=== PATIENT | female | born 1960 | race Caucasian/White ===

== ENCOUNTER → 2016-10-01 | Outpatient (CLI) | payer BC ==
--- NOTE | 2016-10-03 11:21 | MAM ---
EXAM DESCRIPTION: 3D Screening BILATERAL CLINICAL HISTORY: 56 yearsFemaleSCREENING.. No complaints. Aunt with breast cancer. Postmenopausal. No HRT. COMPARISON: Digital 2-D screening bilateral study 01/28/2012.. No prior reports available. TECHNIQUE: Bilateral CC and MLO projection full-field images, 3-D tomosynthesis digital mammographic technique. Also bilateral synthesized CC/ MLO full-field images. CAD not utilized. FINDINGS: The breast parenchymal density pattern is: Scattered areas of fibroglandular density. No skin thickening or nipple retraction bilateral axillary lymph nodes. Bilateral solitary microcalcifications. No focal, stellate mass or density, focal asymmetry , and no suspicious microcalcifications bilaterally. Stable mammograms compared to prior study, taking into account differences in mammographic technique IMPRESSION: BI-RADS CATEGORY: 2 - BENIGN FINDINGS. FOLLOW UP: Routine digital bilateral screening, one year interval from September 2016. Written communication explaining the findings and follow-up, will be mailed to the patient and referring health care provider. According to the [employer], yearly mammograms are recommended starting at age 40 and continuing as long as a woman is in good health. Any breast change noted on a breast self-exam should be reported promptly to the patient's healthcare provider. Breast MRI is recommended for women with an approximately 20-25% or greater lifetime risk of breast cancer, including women with a strong family history of breast or ovarian cancer and women who have been treated for Hodgkin's disease. A negative mammographic report should not delay tissue diagnosis in patients with significant clinical history or physical findings. Extremely dense breast tissue limits the sensitivity of digital mammography. Electronically signed by: Kameron Navarro MD 10/03/2016 11:19 AM CDT Workstation: [id number]
== END | disposition home or self-care (01) ==
LOC: MAMMO 15:16
PROVIDERS: ATTEND Family Medicine
DX: Z12.31 Encounter for screening mammogram for malignant neoplasm of breast (principal)
CPT/HCPCS: 77063; G0202

== ENCOUNTER → 2017-10-16 | Outpatient (CLI) | payer BC ==
--- NOTE | 2017-10-17 13:52 | MAM ---
EXAM DESCRIPTION: 3D Screening BILATERAL : Digital Mammography. CLINICAL HISTORY: 57 years Female SCREENING .. No personal history of breast cancer. Remote family history of breast cancer. Childbirth. Postmenopausal. No HRT. Lifetime risk of developing breast cancer (Tyrer-Cuzick model) is 5.6 %. COMPARISON: Bilateral screening digital breast tomosynthesis 10/01/2016.. TECHNIQUE: Bilateral CC and MLO projection full-field images, Digital tomosynthesis mammographic technique. Bilateral digital 2-D full-field MLO images. CAD not utilized. FINDINGS: The breast parenchymal density pattern is: Scattered areas of fibroglandular density. No skin thickening or nipple retraction. Bilateral axillary lymph nodes. Bilateral solitary microcalcifications. Prominent vascular structures bilaterally. No new focal, stellate mass or density, focal asymmetry , and no suspicious microcalcifications bilaterally. Stable mammograms compared to prior study. Taking into account, differences in mammographic technique. IMPRESSION: Benign exam. BIRAD CATEGORY: 2 BENIGN FINDINGS. RECOMMENDATIONS: FOLLOW UP: Routine digital bilateral screening, one year interval from September 2017. Written communication explaining the IMPRESSION and follow-up, will be mailed to the patient and referring health care provider. According to the [employer], yearly mammograms are recommended starting at age 40 and continuing as long as a woman is in good health. Any breast change noted on a breast self-exam should be reported promptly to the patient's healthcare provider. Breast MRI is recommended for women with an approximately 20-25% or greater lifetime risk of breast cancer, including women with a strong family history of breast or ovarian cancer and women who have been treated for Hodgkin's disease. A negative mammographic report should not delay tissue diagnosis in patients with significant clinical history or physical findings. Extremely dense breast tissue limits the sensitivity of digital mammography. Electronically signed by: Kameron Navarro MD 10/17/2017 1:51 PM CDT
== END ==
LOC: MAMMO 13:00
PROVIDERS: ATTEND Nurse Practitioner Family
DX: Z12.31 Encounter for screening mammogram for malignant neoplasm of breast (principal)

== ENCOUNTER → 2017-11-11 | Outpatient (CLI) | payer BC | LOC: YCFC.O 16:14 | PROVIDERS: ATTEND Nurse Practitioner Family | DX: N39.0 Urinary tract infection, site not specified (principal) ==

== ENCOUNTER → 2017-11-25 | Outpatient (CLI) | payer BC | LOC: YCFC.O 15:15 | PROVIDERS: ATTEND Nurse Practitioner Family | DX: M54.5 Low back pain (principal) ==

== ENCOUNTER → 2017-11-28 | Outpatient (CLI) | payer BC ==
--- NOTE | 2017-11-28 17:01 | RAD ---
EXAM DESCRIPTION: KUB CLINICAL HISTORY: URINARY TRACT INFECTION COMPARISON: None. TECHNIQUE: AP supine abdomen FINDINGS: Surgical clips are seen in the right upper quadrant. No renal calcifications are detected. The bowel gas pattern is unremarkable. No organomegaly is seen. Phleboliths are observed in the pelvis. No stones are seen along the course of the ureters. Mild degenerative changes are observed in the lumbar spine. Degenerative changes are observed in the sacroiliac joints. IMPRESSION: Unremarkable abdomen. Electronically signed by: Kendrick Putnam MD 11/28/2017 4:59 PM CDT
== END ==
LOC: RAD 15:24
PROVIDERS: ATTEND Nurse Practitioner Family
DX: N39.0 Urinary tract infection, site not specified (principal)

== ENCOUNTER → 2017-12-06 | Outpatient (CLI) | payer BC ==
--- NOTE | 2017-12-08 09:31 | CT ---
EXAM DESCRIPTION: Abdomen/Pelvis w/Contrast: Computed Tomography. CLINICAL HISTORY: LOWER ABD PAIN. Right lower quadrant for 3 weeks. Prior cholecystectomy and hysterectomy. Diabetes. COMPARISON: CT abdomen without contrast 12/26/2011. TECHNIQUE: Spiral-axial scans at 5 x 5 mm intervals through the abdomen and pelvis, after nonionic IV contrast and water-soluble oral contrast. Axial 2.5 mm reconstructions. Coronal and sagittal 2.0 mm reconstructions. No delayed scans. No adverse reactions. Total Exam DLP: 1435.46 mGy-cm. This exam was performed according to our departmental dose-optimization program which includes automated exposure control, adjustment of the mA and/or kV according to patient size and/or use of iterative reconstruction technique; to reduce radiation dose to as low as reasonably achievable (ALARA). FINDINGS: Lung bases and pleura: Negative. Liver, Stomach, Spleen, Adrenal Glands: Unremarkable. Pancreas, Gallbladder, Ducts: Surgical clips in the gallbladder fossa without fluid. Normal caliber of the common bile duct. Low-density in the head and body of the pancreas without mass. Increased density of the fat inferior to the pancreas extending inferior in the mid abdominal mesentery. No mass or fluid collection. Kidneys and Ureters: Negative. Aorta: Unremarkable. Small Bowel: Negative. Terminal Ileum/Cecum: Normal caliber. Contains fecal matter. Appendix unremarkable. Normal density of the surrounding fat with no free fluid. Colon: Diffuse fecal material diverticula descending colon and sigmoid with no evidence of complications. Pelvic Organs: Vaginal cuff negative no free fluid. Spine and Bony Pelvis: Minimal lumbar levoscoliosis. Spondylosis L5-S1 with significant foraminal narrowing; spondylosis in the lower thoracic disc spaces Abdominal Wall/Back Soft Tissues: Minimal fatty diastases at the umbilicus but no bowel hernia. IMPRESSION : 1. Steatosis in the pancreas and possible edema in the head and body with stranding of the fatty tissues inferior to the pancreas which would be consistent with mild pancreatitis. No soft tissue mass or fluid collection. No free air. 2. Normal CT appearance of the appendix. 3. Constipation of the colon with distal diverticulosis but no complications. Electronically signed by: Kameron Navarro MD 12/08/2017 9:29 AM CDT
== END ==
LOC: CT 08:13
PROVIDERS: ATTEND Nurse Practitioner Family
DX: K76.0 Fatty (change of) liver, not elsewhere classified (principal); K59.00 Constipation, unspecified; R10.30 Lower abdominal pain, unspecified

== ENCOUNTER → 2017-12-08 | Outpatient (CLI) | payer BC | LOC: LAB.O 18:06 | DX: R10.9 Unspecified abdominal pain (principal) ==

== ENCOUNTER → 2019-01-21 | Outpatient (CLI) | payer BC ==
--- NOTE | 2019-01-22 14:50 | MAM ---
EXAM DESCRIPTION: 3D Screening BILATERAL : Digital Mammography. CLINICAL HISTORY: 58 years Female SCREENING . No complaints or personal history of breast cancer. Remote family history of breast cancer. Menarche age 12. Childbirth age 16. Postmenopausal unknown duration. No HRT. Lifetime risk of developing breast cancer (Tyrer-Cuzick model)(%): 5.5 COMPARISON: Bilateral screening digital breast tomosynthesis 16 October 2017, And 01 October 2016. TECHNIQUE: Bilateral CC and MLO projection full-field images, digital tomosynthesis mammographic technique. Bilateral digital 2-D full-field MLO images. CAD not available for tomosynthesis or 2-D images. FINDINGS: The breast parenchymal density pattern is: Scattered areas of fibroglandular density. No skin thickening or nipple retraction. Bilateral calcifications. Nodular-type fibroglandular tissues bilaterally, more on the right. No new focal, stellate mass or density, focal asymmetry , and no suspicious microcalcifications bilaterally. Stable mammograms compared to prior study. IMPRESSION: Benign exam. BIRAD CATEGORY: 2 BENIGN FINDINGS. RECOMMENDATIONS: FOLLOW UP: Routine digital bilateral mammographic screening, one year interval from January 2019. Written communication explaining the IMPRESSION and follow-up, will be mailed to the patient and referring health care provider. According to the [employer], yearly mammograms are recommended starting at age 40 and continuing as long as a woman is in good health. Any breast change noted on a breast self-exam should be reported promptly to the patient's healthcare provider. Breast MRI is recommended for women with an approximately 20-25% or greater lifetime risk of breast cancer, including women with a strong family history of breast or ovarian cancer and women who have been treated for Hodgkin's disease. A negative mammographic report should not delay tissue diagnosis in patients with significant clinical history or physical findings. Extremely dense breast tissue limits the sensitivity of digital mammography. Electronically signed by: Kameron Navarro MD 01/22/2019 2:48 PM [employer]
== END ==
LOC: MAMMO 13:32
PROVIDERS: ATTEND Nurse Practitioner Family
DX: Z12.31 Encounter for screening mammogram for malignant neoplasm of breast (principal)